=== PATIENT | male | born 1960 | race Caucasian/White ===

== ENCOUNTER 2024-02-03 13:42 | Outpatient (REF) | payer BC, SELFPAY ==
[2024-02-03 15:01] LABS: HGB 17.3 g/dL (13.5-17.5); MCH 30.5 pg (27.0-33.0); MCHC 34.6 % (32.0-36.0); MCV 88 fL (80-95); MPV 10.1 fL (8.0-11.0); Platelet Count 265 10^3/uL (130-400); RBC 5.67 10^6/uL (4.36-5.78); RDW 14.7 % (11.8-14.1); RDW-SD 47.3 fL; WBC 12.25 10^3/uL (4.4-10.8)
[2024-02-03 15:40] LABS: ALT 26 U/L (16-63); AST 23 U/L (15-37); Alkaline Phosphatase 123 U/L (46-116); Anion Gap 9.5 mmol/L (3-11); BUN 12 mg/dL (7-18); Bilirubin, Total 0.5 mg/dL (0.2-1.0); CO2 24.5 mmol/L (21.0-32.0); CREATININE 0.8 mg/dL (0.70-1.30); Calcium 9.8 mg/dL (8.5-10.1); Calculated LDL 79 mg/dL (<100); Chloride 107 mmol/L (98-107); Cholesterol 151 mg/dL (<200); Estimated GFR 98.21 (mL/min/1.73m2); Glucose 100 mg/dL (74-106); HDL Cholesterol 62 mg/dL (40-60); Potassium 4.1 mmol/L (3.5-5.1); Sodium 141 mmol/L (136-145); Total Protein 7.6 g/dL (6.4-8.2); Triglyceride 50 mg/dL (<150)
[2024-02-03 23:12] LABS: PSA, Screening 19.4 ng/mL (<=4.5)
== END 2024-02-03 13:43 | disposition home or self-care (01) ==
LOC: NCHCN 13:42
PROVIDERS: PCP Internal Medicine; Visit Provider Family Medicine
DX: Z13.220 Encounter for screening for lipoid disorders (principal); Z00.00 Encounter for general adult medical examination without abnormal findings; Z12.5 Encounter for screening for malignant neoplasm of prostate
CPT/HCPCS: 80053; 80061; 84153; 85027

== ENCOUNTER → 2024-02-17 00:48 | Outpatient (CLI) | payer BC, SELFPAY ==
--- NOTE | 2024-02-17 | ETT_ITS ---
APPROVED REPORT Exam: Exercise Treadmill Patient Location: Out-Patient Room/Bed: Stress Nurse: Blanca Kelsey RN Ordering Provider:VÍCTOR SHANKS, Contact Number: [phone] BMI: 26.62 Baseline Rhythm: Sinus Rhythm Comment: Occasional PAC's Indications: Worsening exercise tolerance with SOB, Medical History Medical History: Acoustic neuroma, smoker, hearing loss, ulcerative colitis, exertional chest pain Cardiac Medications: Lisinopril Allergies: NKDA Cardiac Risk Factors: Smoker Previous Cardiac Procedures: None Pretest Chest Pain Characteristics: None Exercise History: Indeterminate Physical Disabilities: None Lung Sounds: Clear/ diminished throughout Heart Sounds: Regular Stress Test Details Test: Exercise stress testing was performed using a Mo protocol. Rest Stress HR Resting HR Supine: 71 bpm Max Heart Rate (APMHR): 155 bpm Resting HR Standin bpm Target HR (85% APMHR): 132 bpm Max HR Achieved: 135 bpm % of APMHR: 87 Recovery HR: 88 bpm HR response to stress: Normal HR response to stress BP Resting BP Supine: 120/72 mmHg Resting BP Standin/80 mmHg Max BP: 190/84 mmHg Recovery BP: 118/74 mmHg BP response to stress: Normal blood pressure response to stress. ECG Resting ECG: Sinus Rhythm Ectopy: Occasional PAC's Stress ECG: Sinus Tachycardia ST Change: No significant ST segment changes noted Arrhythmia: Occasional PAC's Recovery ECG: Sinus Rhythm Recovery ST Change: No significant ST segment changes noted Recovery Arrhythmia: Occasional PAC's Clinical Reason for Termination: Target HR Achieved, Fatigue, mod SOB Stress Symptoms: General Fatigue, mod SOB Exercise duration: 06 min14 sec Highest Stage Reached: Stage 2: 2.5 mph at 12% grade. Exercise capacity: 7 METs Angina Score: None [place] Treadmill Score: 6.5 Rate Pressure Product: [id number] Stress ECG Conclusion 1. Resting electrocardiogram was normal 2. Patient exercised on the Mo protocol and completed a workload of 7 METS 3. Normal heart rate and blood pressure response to exercise. The patient achieved 87% of predicted heart rate for age 4. There was no electrocardiographic evidence of myocardial ischemia 5. There were no significant dysrhythmias [place] Treadmill Score is 6.5 which is Low risk. Stress Test Summary STAGE Time (mins) Speed (mph) Grade (%) HR BP SpO2 SYMPTOMS METS Supine 71 120/72 97 Standing 79 130/80 1 3 1.7 10 111 142/82 Mild SOB 4.5 2 6 2.5 12 125 Mod SOB, general fatigue 7 3 9 3.4 14 130 Mod SOB, general fatigue 10 1 min recovery 120 190/84 89 Mod SOB 3 min recovery 93 180/90 94 6 min recovery 88 118/74 95 All symptoms resolved.
== END ==
PROVIDERS: PCP Internal Medicine; Visit Provider Family Medicine
DX: R06.09 Other forms of dyspnea (principal)
CPT/HCPCS: 93017

== ENCOUNTER 2024-03-08 21:03 | Outpatient (REF) | payer BC, SELFPAY ==
[2024-03-08 23:03] LABS: PSA, Diagnostic 30.8 ng/mL (<=4.5)
== END 2024-03-08 21:04 | disposition home or self-care (01) ==
LOC: NCHCN 21:03
PROVIDERS: PCP Internal Medicine; Visit Provider Family Medicine
DX: N40.0 Benign prostatic hyperplasia without lower urinary tract symptoms (principal)
CPT/HCPCS: 84153

== ENCOUNTER 2024-04-27 20:47 | Outpatient (REF) | payer BC, SELFPAY ==
[2024-05-01 15:06] LABS: PSA, Ultrasensitive 27.2 ng/mL (<= 4.5)
== END 2024-04-27 20:48 | disposition home or self-care (01) ==
LOC: LBN 20:47
PROVIDERS: PCP Internal Medicine; Visit Provider Student in an Organized Health Care Education/Training Program
DX: R97.20 Elevated prostate specific antigen [PSA] (principal)
CPT/HCPCS: 84153

== ENCOUNTER 2024-10-10 21:12 | Outpatient (REF) | payer BC, SELFPAY ==
[2024-10-12 17:29] LABS: PSA, Ultrasensitive 26.9 ng/mL (<= 4.5)
== END 2024-10-10 21:13 | disposition home or self-care (01) ==
LOC: LBN 21:12
PROVIDERS: PCP Internal Medicine; Visit Provider Urology
DX: R97.20 Elevated prostate specific antigen [PSA] (principal)
CPT/HCPCS: 84153

== ENCOUNTER 2024-12-26 19:48 | Outpatient (REF) | payer BC, SELFPAY ==
[2024-12-19 15:55] LABS: PSA, Ultrasensitive 28.1 ng/mL (<= 4.5)
== END 2024-12-26 19:49 | disposition home or self-care (01) ==
LOC: LBN 19:48
PROVIDERS: PCP Internal Medicine; Visit Provider Student in an Organized Health Care Education/Training Program
DX: R97.20 Elevated prostate specific antigen [PSA] (principal)
CPT/HCPCS: 84153

== ENCOUNTER 2025-07-12 11:01 | Outpatient (REF) | payer BC, SELFPAY | END 2025-07-12 11:02 | disposition home or self-care (01) | LOC: LBN 11:01 | PROVIDERS: PCP Internal Medicine; Visit Provider Urology | DX: R97.20 Elevated prostate specific antigen [PSA] (principal) | CPT/HCPCS: 84153 ==